=== PATIENT | male | born 1950 | race African-American/Black ===

== ENCOUNTER 2023-07-28 05:52 | Emergency (ER) | payer MEDICARE, SELFPAY ==
[2023-07-28 05:51] VITALS: BP 150/99; PULSE 61; RESP 15; TEMP 36.7; O2SAT 99
[2023-07-28] MEDS: ONDANSETRON INJ 4 MG/2 ML VIAL IV PUSH (06:17)
[2023-07-28 06:18] VITALS: BP 145/97; PULSE 65; RESP 15; O2SAT 100
[2023-07-28 06:54] LABS: Alanine Aminotransferase 14 U/L (6-50); Albumin Level 4.1 g/dL (3.5-5.1); Alkaline Phosphatase 86 U/L (38-126); Anion Gap 6 mmol/L (8-16); Aspartate Amino Transferase 37 U/L (17-59); Blood Urea Nitrogen 17 mg/dL (9-20); Calcium 8.9 mg/dL (8.4-10.2); Carbon Dioxide 26 mmol/L (22-30); Chloride 107 mmol/L (98-107); Estimated CRCL calculation 57 ml/min; Estimated Glomerular Filt Rate > 60; Glucose 147 mg/dL (65-110); Lipase 90 U/L (23-300); Sodium 139 mmol/L (137-145)
[2023-07-28 07:22] VITALS: BP 145/73; PULSE 77; RESP 22; O2SAT 99
[2023-07-28 07:23] LABS: Basophils Percent Auto 0.5 % (0.2-1.2); Eosinophils Percent Auto 0.3 % (0-4.4); Hematocrit 40.6 % (42.0-52.0); Immature Granulocyte Absolute 0.02 K/mm3 (0.00-0.031); Immature Granulocyte Percent A 0.3 % (0-0.5); Lymphocytes Absolute Auto 0.55 K/mm3 (0.9-3.2); Lymphocytes Percent Auto 7.5 % (18.3-44.2); Mean Corpuscular HGB Conc 29.6 g/dl (32-36); Mean Corpuscular Volume 98.1 fl (80-100); Mean Platelet Volume 9.8 fl (7.4-10.4); Monocytes Absolute Auto 0.3 K/mm3 (0.1-0.6); Monocytes Percent Auto 4.3 % (2.6-8.5); Neutrophils Absolute Auto 6.4 K/mm3 (1.3-6.7); Neutrophils Percent Auto 87.1 % (45.5-73.1); Platelet Count Result 206 k/mm3 (150-375); Red Blood Count 4.14 M/mm3 (4.6-6.20); Red Cell Distribution Width 12.4 % (11.5-14.5); White Blood Count 7.4 K/mm3 (4.5-10.0)
--- NOTE | 2023-07-28 07:43 | ED.GENADULT ---
HPI - General Adult General Chief complaint: Nausea/Vomiting/Diarrhea Stated complaint: vomiting Time Seen by Provider: 07/28/23 06:54 History of Present Illness HPI narrative: 73-year-old male present to the ED for evaluation of some nausea vomiting and abdominal pain. Patient states he had some plants for dinner and they caused him to have some nausea and vomiting. Patient was treated with Zofran by EMS and states that all his symptoms have resolved. Patient denies any current abdominal pain nausea or vomiting. Patient is resting comfortably at this time. Patient is a poor historian but patient denies any previous abdominal surgeries. Related Data Allergies Allergy/AdvReac Type Severity Reaction Status Date / Time No Known Allergies Allergy Verified 07/28/23 06:03 Review of Systems Review of Systems: All systems reviewed & are unremarkable except as noted in HPI and below Exam Narrative: APPEARANCE: Well appearing, no pain, no distress, well-nourished. HEAD: normocephalic, atraumatic. EYES: PERRLA/EOMI, conjunctivae clear. NOSE: Normal no drainage EARS:TMS clear with good light reflex. THROAT: Pharynx clear, no exudate. NECK: Supple. No adenopathy, no masses. RESPIRATORY: Airway patent, respirations nonlabored. Clear to auscultation bilaterally, no rales, rhonchi, wheezing. CARDIOVASCULAR: Regular rate and rhythm without murmurs rubs or gallops. ABDOMINAL: Soft, nontender, nondistended, normal bowel sounds MUSCULOSKELETAL: Moves all extremities. Strength/ROM intact, No edema, No calf tenderness. NEURO: Alert. Cranial nerves II through XII intact. Good gait. Good coordination SKIN: Warm, dry. Normal Color PSYCHIATRIC: Normal affect/mood. Course Course Emergency Course: 73-year-old male presenting ED for evaluation nausea vomiting diarrhea that has since resolved. Patient has no tenderness to palpation and patient is resting comfortably. Patient is afebrile with no leukocytosis and a stable hemoglobin of 12.0. Patient has no acute abnormalities on his CMP. Patient's nausea and vomiting has resolved patient has no complaints at this time. Patient was discharged back to home. Vital Signs Vital signs: Vital Signs Temperature 98.1 F 07/28/23 05:51 Pulse Rate 61 07/28/23 05:51 Respiratory Rate 15 07/28/23 05:51 Blood Pressure 150/99 H 07/28/23 05:51 Pulse Oximetry 99 07/28/23 05:51 Oxygen Delivery Room Air 07/28/23 05:51 Temperature 98.1 F 07/28/23 05:51 Pulse Rate 66 07/28/23 08:24 Respiratory Rate 20 07/28/23 08:24 Blood Pressure 137/59 L 07/28/23 08:24 Pulse Oximetry 100 07/28/23 08:24 Oxygen Delivery Room Air 07/28/23 05:51 Medical Decision Making Differential Diagnosis Differential Diagnosis: Gastroenteritis, food poisoning, viral etiology, nausea vomiting Vital Signs Vital Signs: Vital Signs Temperature 98.1 F 07/28/23 05:51 Pulse Rate 61 07/28/23 05:51 Respiratory Rate 15 07/28/23 05:51 Blood Pressure 150/99 H 07/28/23 05:51 Pulse Oximetry 99 07/28/23 05:51 Oxygen Delivery Room Air 07/28/23 05:51 Temperature 98.1 F 07/28/23 05:51 Pulse Rate 66 07/28/23 08:24 Respiratory Rate 20 07/28/23 08:24 Blood Pressure 137/59 L 07/28/23 08:24 Pulse Oximetry 100 07/28/23 08:24 Oxygen Delivery Room Air 07/28/23 05:51 Lab Data Lab results reviewed: Yes I reviewed the patient's lab results. 07/28/23 07:12 07/28/23 06:36 Labs: Lab Results 07/28/23 07/28/23 07/28/23 Range/Units 06:36 07:12 07:32 WBC 7.4 (4.5-10.0) K/mm3 RBC 4.14 L (4.6-6.20) M/mm3 Hgb 12.0 L (14.0-18.0) g/dL Hct 40.6 L (42.0-52.0) % MCV 98.1 (80-100) fl MCH 29.0 (26-34) pg MCHC 29.6 L (32-36) g/dl RDW 12.4 (11.5-14.5) % Plt Count 206 (150-375) k/mm3 MPV 9.8 (7.4-10.4) fl Immature Gran % (Auto) 0.3 (0-0.5) % Neut % (Auto) 87.1 H (45.5-73.1) % Lymph %
[2023-07-28 07:46] LABS: Appearance Urine Clear (Clear); Bacteria Urine None Seen /hpf; Bilirubin Urine Negative (Negative); Blood Urine 2+ (Negative); Color Urine Yellow (Yellow); Glucose Urine UA Negative (Negative); Ketones Urine Trace mg/dL (Negative); Leukocyte Esterase Ur Negative LEU/UL (Negative); Nitrate Urine Negative (Negative); Non Pathogenic Casts 0-2; Protein Urine Trace mg/dL (Negative); RBC Urine 21-50 /hpf (0-2); Specific Grav Ur 1.021 (1.001-1.035); Squamous Epithelial Cell Urine None seen /hpf (Few); Urobilinogen Urine 0.2 mg/dL (<2.0); WBC Urine 0-5 /hpf; pH Urine 5.5 (5.0-9.0)
[2023-07-28 07:48] LABS: Add Urine Microscopic? YES
[2023-07-28 08:17] LABS: Ovalocytes 1+ (NORMAL); Platelet Estimate Adequate (Adequate); Schistocytes None Seen (NORMAL)
[2023-07-28 08:24] VITALS: BP 137/59; PULSE 66; RESP 20; O2SAT 100
== END 2023-07-28 08:41 | disposition home or self-care (01) ==
LOC: ANHED 08:05
PROVIDERS: Emergency Medicine; Emergency Provider Emergency Medicine
DX: R11.2 Nausea with vomiting, unspecified (principal)
CPT/HCPCS: 36415; 80053; 81001; 83690; 85025; 96374; 99284; J2405